=== PATIENT | male | born 1985 | race Caucasian/White ===

== ENCOUNTER 2024-06-25 21:50 | Inpatient (IN) | payer OTHER, SELFPAY ==
[2024-06-25] VITALS (15 sets, daily range): BP systolic 131–212; BP diastolic 88–128
--- NOTE | 2024-06-25 16:08 | ED.GENMED ---
History of Present Illness
General
Chief Complaint: Male Genito-Urinary Symptoms
Source: patient
Time Seen by Provider: 06/25/24 15:54
History of Present Illness
History of Present Illness:
39-year-old male with past medical history of previous UTI and urethral stricture presenting to the emergency department for evaluation of inability to urinate since 10 AM this morning, notes a lower abdominal pressure and fullness sensation but
states does not feel he is able to urinate properly. States this has not happened for few years. Previously followed with Dr. Young from urology but he has since retired. Patient denies any fevers, chills, rigors, back or flank pain, nausea,
vomiting or any other concerns presently.
Past History
Past History
ED Past Medical History: Other (History of meningitis) and Other (Previous urinary tract infection, urethral stricture, urinary retention)
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
Social History
Tobacco: Non-smoker
Alcohol: Occasional
Drug: None
Personal: Single
Living: with family
Employment: Employed
Family History
Family History: Other (Noncontributory)
Review of Systems
Review of Systems
All Other Systems: ROS reviewed and negative except as documented in HPI and ROS
Phy Exam
Physical Exam
Physical Exam:
GENERAL: Alert , in no apparent distress
EYE: clear conjunctiva b/l
HEAD: NCAT
ENT: mmm.
ABDOMEN: Soft, suprapubic fullness with mild ttp, no r/g, no cvat
NEUROLOGICAL: Alert and oriented
SKIN: Warm and dry, skin intact.
MUSCULOSKELETAL: No edema, well perfused.
PSYCH: Normal and appropriate interaction.
Scores
Heart Failure Risk
Heart Failure Risk Score: Not Applicable
Heart Score for Chest Pain Patients
STEMI patient?: Not applicable
Withdrawal Assessment of Alcohol
Withdrawal Assessment Completed?: Not applicable
Course
Orders/Labs/Results
Orders:
Orders
06/25/24 Dinner
Regular
At Your Request: Full Participation
Does patient need a safe tray?: No
06/25/24 16:02
Camargo Placement- Treatment ONCE
Reason for insertion: Acute Retention
06/25/24 16:19
Urinalysis Reflex To Culture Urgent
Date Specimen was Collected: 06/25/24
Time Specimen was Collected: 16:00
Urine Microscopic Reflex Cult Urgent
06/25/24 16:22
Lidocaine 2% [Lidocaine Uro-Jet 2%] 1 syringe .ROUTE .STK-MED ONE
06/25/24 17:16
Type+Screen Urgent
Basic Metabolic Panel Urgent
Complete Blood Count/With Diff Urgent
PTT Urgent
Prothrombin Time Urgent
06/25/24 17:31
Lidocaine 2% [Lidocaine Uro-Jet 2%] 1 syringe .ROUTE .STK-MED ONE
06/25/24 17:51
ABO2 Urgent
BBK Wristband Number:
Associate notified that ABO2 has been ordered: [id number]
Date: 06/25/24
Time: 17:41
Service Desk Agent ID: [id number]
06/25/24 18:25
Fentanyl Citrate/Pf [Sublimaze] 25 mcg IV PACU-Q5MPRN PRN
Fentanyl Citrate/Pf [Sublimaze] 50 mcg IV PACU-Q5MPRN PRN
Meperidine [Demerol] 12.5 mg IV PACU-Q5MPRN PRN
Ondansetron Injectable [Zofran] 4 mg IV PACU-ONCEPRN PRN
Prochlorperazine [Compazine] 5 mg IV PACU-ONCEPRN PRN
Notify MD As Directed
Notify physician if: for SDS patients with known or suspected sleep obstructive sleep apnea, monitor in the
PACU.
Notify MD for any apneic/desaturation episodes
O2 Therapy [RESP] Urgent
Titrate/Wean O2 to maintain O2 sat greater than (%): 92
Special Instructions: -Provide supplemental oxygen to achieve O2 sat of 92% or greater.
-After 15 min, may wean O2 and discontinue if patient is able to maintain O2 sat of 92%
or greater during recovery period.
If patient is a discharge home, without oxygen therapy, notify anestheiologist if
unable to maintain O2 SAT of 92% or greater on room air for MD clearance.
06/25/24 18:27
LevoFLOXacin 500 MG/100 ML [Levaquin] 500 mg in 100 ml IV ONCE
06/25/24 18:45
Fentanyl Citrate/Pf [Sublimaze] 100 mcg .ROUTE .STK-MED ONE
Lidocaine HCl/Pf [Xylocaine-Mpf 1% Vial] 50 mg .ROUTE .STK-MED ONE
Midazolam HCl [Versed] 2 mg .ROUTE .STK-MED ONE
Ondansetron Injectable [Zofran] 4 mg .ROUTE .STK-MED ONE
Propofol [Diprivan] 40 ml .ROUTE .STK-MED
06/25/24 19:58
Admit Patient As Directed
Co-Sign Provider:
Level of Care: Inpatient admission
Assign to:: Medical/Surgical
Physician / Group: Marcia
Diagnosis: urethral trauma, urinary retention
Patient Condition: Good
Reason for Hospitalization: s/p SPT insertion, urethral trauma
Expected length of stay greater than two midnights?: No
ELOS- Estimated Length of Stay in days: 1
I certify the patient meets the requirements for IP care: Yes
Reason for Overnight Stay: Bleeding/Bleeding Risk
PRN Pain Medication Management As Directed
May give lesser potent ordered pain med per pt: Yes
preference::
Protocol:: Medication orders for pain may be administered in a
manner that supports deferring to patient preference
when the pt is:
- Requesting an ordered lesser potent pain medication.
Least to most potent pain medications are defined
as: acetaminophen < NSAID < tramadol < opioids
(morphine, oxycodone, hydromorphone).
- Requesting a lesser dose of the same medication IF
ORDERED.
- Requesting a less intrusive route of administration
if both routes are prescribed by the provider (PO <
IV).
06/25/24 19:59
Activity As Directed
Activity Level: Out of Bed- Ad Piper
Catheter-Suprapubic As Directed
Site Care: as needed
Intake/ Output As Directed
Frequency: Per unit guidelines
06/25/24 20:00
Amoxicillin 500 mg/Clav 125 mg [Augmentin 500 mg/125 mg] 1 tablet PO BID
Pneumatic Compression Sleeves As Directed
Type: Knee high
DX Deep Vein Thrombosis Video Routine
06/25/24 20:01
Acetaminophen [Tylenol] 650 mg PO Q4HPRN PRN
Ibuprofen [Motrin] 800 mg PO Q6HPRN PRN
Oxycodone [Roxicodone] 5 mg PO Q6HPRN PRN
Vital Signs As Directed
Frequency: Post-operative guidelines
06/25/24 20:15
Normosol (Mult Electrolytes) [Normosol-R/Plasmalyte-A] 1,000 ml IV 75 mls/hr
06/26/24 07:07
Basic Metabolic Panel IN AM
Complete Blood Count/With Diff IN AM
Abnormal Lab Results
06/25/24 06/25/24
16:19 17:16
WBC 12.0 H 10^3/uL
(4.8-10.8)
MPV 12.2 H fL
(7.4-10.4)
Abs Immat Gran (auto) 0.1 H 10^3/uL
(0-0.05)
Absolute Neuts (auto) 8.5 H 10^3/uL
(1.4-6.5)
Absolute Monos (auto) 0.9 H 10^3/uL
(0.1-0.6)
Immature Gran % 0.6 H %
(0-0.5)
Lymphocytes % 19.6 L %
(20.5-51.1)
Potassium 3.3 L mmol/L
(3.5-5.1)
Carbon Dioxide 19 L mmol/L
(22-30)
Glucose 115 H mg/dl
(70-99)
Ur Occult Blood Reflex 4+ A
(Negative)
Urine RBC 80-90 A /HPF
(0-2)
Urine Bacteria (Reflex) Few A
(Negative)
Antibody Screen Positive A
(Negative)
06/25/24 17:16
06/25/24 17:16
Vital Signs
Initial and Last Documented VS:
Initial Vital Signs
Temp Pulse Resp BP Pulse Ox
98.3 F 78 20 160/99 99
06/25/24 14:32 06/25/24 14:32 06/25/24 14:32 06/25/24 14:32 06/25/24 14:32
Last Documented Vital Signs
Temp Pulse Resp BP Pulse Ox
98.3 F 76 18 154/83 98
06/26/24 07:58 06/26/24 07:58 06/26/24 07:58 06/26/24 07:58 06/26/24 08:00
MDM/Problems Addressed
Differential Diagnosis Includes:
UTI, BPH, stricture
MDM/Problems Addressed:
39-year-old male presenting to the emergency department for evaluation with inability to urinate since 10 AM. History of similar with UTIs and strictures in the past. Patient in no acute distress. Afebrile. Bedside bladder scan performed by
myself which showed greater than 750 mL of urine. Patient to attempt to urinate but if unable to do so will attempt Camargo catheter placement. Disposition pending
Chronic conditions affecting care: Other (urethral stricture)
*Pulse Oximetry
Patient hypoxic: no
*Critical Care Note
Total Time (30-74mins, 75-104mins- exclusive of procedures): Not Applicable
Data Reviewed
Review of Other/Old Records Reveals: Labs and Records
Patient Management
Discussion with other providers: Final Installer Inspector
Escalation/DeEscalation of care consider admission/obs:
Nursing able to place camargo however there seemed to be resistance but there was small urine return. Upon attempting to blow up camargo balloon there was large amount of blood within camargo bag and patient noted improvement of pressure. Tanner blood
draining. Will initiate CBI. Urology updated
Urology coming to ED to see patient
Unable to place camargo catheter wit urology. Urology planning to take to OR for further evaluation
ED Attending Note
-
Portions of this chart may have been created with voice recognition software.� Occasional wrong word or��sound alike� substitutions may have occurred due to the inherent limitations of voice recognition software.
Discharge Plan
Departure
Patient Disposition: OR
Date of Disposition: 06/25/24
Time of Disposition: 17:26
Presentation/result/management discussed w/ accepting MD/DO: Marcia
Discharge Problem:
Acute urinary retention, Hematuria
Interventions
Interventions:
*Risk Screen - Suicide Last Done: 06/25/24 16:04
*General Assessment Last Done: 06/25/24 14:32
*Neglect/Abuse Screening Last Done: 06/25/24 16:04
ED- Fall Risk Assessment Last Done: 06/25/24 16:05
*ED COVID-19 Vaccine History Last Done: 06/25/24 16:04
*Nursing Disposition Last Done: 06/25/24 18:11
ED-Male Genitourinary Assessment Last Done: 06/25/24 16:05
Discharge Date and Time
Discharge Date/Time: 06/25/24 18:12
[2024-06-25 16:58] LABS: Urine Albumin Trace (Neg - Trace); Urine Bilirubin Negative (Negative); Urine Character Clear (Clear); Urine Color Yellow; Urine Glucose Negative (Negative); Urine Ketone Negative (Negative); Urine Leukocyte Negative (Negative); Urine Nitrite Negative (Negative); Urine Occult Blood 4+ (Negative); Urine Urobilinogen Negative (Neg - 1+)
[2024-06-25 17:09] LABS: Urine Red Blood Cell 80-90 /HPF (0-2); Urine Squamous Cell 26-30 /LPF (Few)
[2024-06-25 17:10] LABS: Urine Bacteria Few (Negative); Urine White Cell 0-2 /HPF (0-5)
[2024-06-25 17:31] LABS: % Basophils 0.3 % (0-2); % Eosinophils 1.4 % (0-6); % Immature Granulocytes 0.6 % (0-0.5); % Lymphocytes 19.6 % (20.5-51.1); % Monocytes 7.3 % (1.7-9.3); % Neutrophils 70.8 % (42.2-75.2); Absolute Eosinophils 0.2 10^3/uL (0-0.7); Absolute Immature Granulocytes 0.1 10^3/uL (0-0.05); Absolute Lymphocytes 2.4 10^3/uL (1.2-3.4); Absolute Monocytes 0.9 10^3/uL (0.1-0.6); Absolute Neutrophils 8.5 10^3/uL (1.4-6.5); Hematocrit 41.4 % (39.0-52.0); Mean Corp Hgb Conc. 33.8 g/dL (33.0-37.0); Mean Corpuscular Hgb 27.3 pg (27.0-31.0); Mean Corpuscular Volume 80.9 fL (80.0-94.0); Mean Platelet Volume 12.2 fL (7.4-10.4); Nucleated Red Blood Cells % 0 % (-); Platelet Count 205 10^3/uL (130-400); Red Blood Cell Count 5.12 10^6/uL (4.70-6.10); Red Cell Dist. Width 14.1 % (11.5-14.5)
[2024-06-25 17:36] LABS: INR 1.06; PT 13.8 Sec (11.4-14.6)
[2024-06-25 17:37] LABS: APTT 29.1 Sec (23.4-35.0)
[2024-06-25 17:41] LABS: Blood Urea Nitrogen 11 mg/dl (9-20); Calcium 9.5 mg/dl (8.4-10.2); Carbon Dioxide 19 mmol/L (22-30); Chloride 105 mmol/L (98-107); Glucose 115 mg/dl (70-99); Potassium 3.3 mmol/L (3.5-5.1); Sodium 143 mmol/L (135-145); eGFR > 60.00
--- NOTE | 2024-06-25 18:25 | W.SUR.PREOP ---
Pre-Operative Surgical Note
-
I have examined this patient prior to the performance of the scheduled procedure.
The patient's condition is unchanged from the time of the current History and
Physical and the patient is able to undergo the scheduled procedure.
Multiple catheter placement attempts unsuccessful in ED - regular, Coude, 3-way (by ED staff).
Due to urethral trauma, suspected false passage, and h/o urethral stricture, advised cystoscopy for placement.
To OR for cystoscopy, dilation, complicated catheter placement.
Surgical consent signed on chart
IV [employer] employee communications coordinator to OR.
D/w patient.
D/w ED.
D/w Anesthesiology.
--- NOTE | 2024-06-25 20:02 | W.IMMPOSTOP ---
Surgical Immed Post Op Note
-
Primary Surgeon: Marcia
Pre-op Diagnosis:
1. H/o urethral stricture
2. Acute urinary retention
3. Urethral trauma w/ complete obliteration of urethral lumen
Post-op Diagnosis: Same
Procedure Performed:
1. Cystoscopy
2. Suprapubic aspiration of bladder
2. Suprapubic catheter insertion (16Fr)
Anesthesia Type: LMA
Specimen / Cultures: None/None
Estimated Blood Loss: 5 cc
Drains: 16Fr suprapubic catheter (10 cc in balloon)
Complications: None
Operative Findings:
1. Complete obliteration of proximal membranous vs. bulbar urethra - complete 'cob-webbing' of urethral lumen w/ multiple false passages and organized clot.
2. No visible urethral lumen noted on cystoscopy - failed attempts at Guidewire passage.
3. Aspiration of clear yellow urine via spinal needle @suprapubic area - 16Fr SPT inserted using SPT kit and trocar.
4. >1300 cc of UOP noted in catheter post-op.
D/w patient in PACU.
[2024-06-25] MEDS: NORMOSOL-R/PLASMALYTE-A 1000 IV (21:51)
[2024-06-25] MEDS: AUGMENTIN 500 MG/125 MG 1 TABLET PO (21:52)
[2024-06-25] MEDS: MOTRIN 800 MG PO (21:54)
--- NOTE | 2024-06-25 22:16 | PTCARENOTE ---
Received pt from PACU via stretcher. Pt ambulated to bed with 2 assist, slightly wobbly on feet. AAOx3. Oriented to floor, call aden within reach
[2024-06-26 00:05] VITALS: BP 145/100
[2024-06-26 03:15] VITALS: BP 148/79
[2024-06-26] MEDS: MOTRIN 800 MG PO (06:26)
[2024-06-26] MEDS: ZOFRAN 4 MG IV (06:38)
[2024-06-26 07:35] LABS: % Basophils 0.1 % (0-2); % Eosinophils 0.1 % (0-6); % Immature Granulocytes 0.6 % (0-0.5); % Lymphocytes 4.8 % (20.5-51.1); % Monocytes 4.6 % (1.7-9.3); % Neutrophils 89.8 % (42.2-75.2); Absolute Immature Granulocytes 0.1 10^3/uL (0-0.05); Absolute Lymphocytes 0.8 10^3/uL (1.2-3.4); Absolute Monocytes 0.8 10^3/uL (0.1-0.6); Absolute Neutrophils 15.5 10^3/uL (1.4-6.5); Hematocrit 42.1 % (39.0-52.0); Hemoglobin 13.8 g/dL (13.0-18.0); Mean Corp Hgb Conc. 32.8 g/dL (33.0-37.0); Mean Corpuscular Hgb 27.1 pg (27.0-31.0); Mean Corpuscular Volume 82.7 fL (80.0-94.0); Mean Platelet Volume 12.3 fL (7.4-10.4); Nucleated Red Blood Cells % 0 % (-); Platelet Count 202 10^3/uL (130-400); Red Blood Cell Count 5.09 10^6/uL (4.70-6.10); Red Cell Dist. Width 14.6 % (11.5-14.5); White Blood Cell Count 17.2 10^3/uL (4.8-10.8)
--- NOTE | 2024-06-26 07:50 | W.PN.URO.CBU ---
Today's Communication / Plan
-
D/c home today
SPT teaching and wound care
SPT leg bag and large bag teaching
F/U w/ Dr. Kennedy in 1 week for wound check
Assessment / Plan
-
Acute urinary retention
H/o urethral stricture
Urethral trauma w/ multiple false passages
06/25: s/p cystoscopy, clot extraction, SPT insertion
Diagnosis
-
Date of Service: June 26, 2024
-
Patient Diagnosis:
Acute urinary retention
H/o urethral stricture
Urethral trauma w/ multiple false passages
Post Op Day:
06/25: s/p cystoscopy, clot extraction, SPT insertion
Subjective
-
Tolerating diet.
Notes minimal pain @suprapubic site.
Urine light punch w/o clots.
Objective
-
Vital Signs
Temp Pulse Resp BP Pulse Ox
98.3 F 76 18 154/83 98
06/26/24 07:58 06/26/24 07:58 06/26/24 07:58 06/26/24 07:58 06/26/24 07:58
Intake and Output
06/25/24 06/26/24 06/27/24
06:59 06:59 06:59
Intake Total 1210 / 1210
Output Total 3225 / 3225
Balance -2014 /
Intake:
Oral fluids 960 / 960
IV fluids (Total) 250 / 250
Normosol 250 / 250
Output:
Urine, Jordan 850 / 850
Urine, Voided 2375 / 2375
Laboratory Results
06/26/24 07:07
06/26/24 07:07
Physical Exam
-
General - well developed, well nourished, no acute distress
Abdomen - soft, non-tender, non-distended, SPT site clean w/o drainage/bleeding
Genitalia - normal, scant old clots per urethra, no active bleeding
Skin - warm & dry with no rash
Extremities - no clubbing, no cyanosis, no edema
Care Review
Data Reviewed
Discussed with: Nursing
[2024-06-26] MEDS: AUGMENTIN 500 MG/125 MG 1 TABLET PO (07:53)
[2024-06-26 07:58] VITALS: BP 154/83
[2024-06-26 08:09] LABS: Blood Urea Nitrogen 11 mg/dl (9-20); Calcium 8.6 mg/dl (8.4-10.2); Carbon Dioxide 26 mmol/L (22-30); Chloride 106 mmol/L (98-107); Estimated Creatinine Clearance > 125 ml/min; Glucose 116 mg/dl (70-99); Potassium 3.9 mmol/L (3.5-5.1); Sodium 143 mmol/L (135-145); eGFR > 60.00
--- NOTE | 2024-06-26 09:25 | W.DS.TRANS ---
DC Summary - Color Weigher
-
Discharge Instructions:
Discharge Diagnosis/Procedures urethral trauma, false passages, s/p SPT
insertion
Diet Regular
Activity No strenuous activity
Additional Activity No strenuous exercise, lifting for [address] Kennedy
Driving Restrictions No driving for 24 hours
Bathing Restrictions OK to Shower
Blood Work not applicable
Wound Care Change dressing around SPT site as needed,
maintain SPT to drainage bag (leg bag or large
bag)
Instructions:
Stand-Alone Forms:
Changes to Home Medications: No
Discharge Medications:
DC Medications w/original date entered in [employer]
amoxicillin 500 mg-potassium clavulanate 125 mg tablet 1 tab PO BID 06/25/24
acetaminophen 300 mg-codeine 30 mg tablet 1 tab PO Q8H PRN pain 7 days #20 tabs 06/26/24
Home Medication Changes
Pending Results: No
Total time spent discharging patient (in min): 45
[2024-06-26] MEDS: NORMOSOL-R/PLASMALYTE-A IV (10:41)
--- NOTE | 2024-06-26 11:36 | PTCARENOTE ---
3cc of NSS added to camargo balloon per Dr Veloz request. Pt tolerated well no complaints
--- NOTE | 2024-06-26 14:21 | CM ---
DEWAYNE met with Jose at bedside to complete IA. He lives alone in an apartment with no entry steps.
Discharged to home s/p suprapubic tube; VN offered and declined.
Plan: Discharge to home with follow up with Urology; no needs per patient.
== END 2024-06-26 16:36 | disposition home or self-care (01) | DRG 696 ==
LOC: 4 EAST ACU 21:50
PROVIDERS: Physician Assistant Medical; ADMITTING PHYSICIAN Surgery; EMERGENCY PHYSICIAN Emergency Medicine; FAMILY PHYSICIAN Family Medicine
PROC: 0T9B40Z Drainage of Bladder with Drainage Device, Percutaneous Endoscopic Approach (ICD-10-PCS; 2024-06-25)
DX: R33.9 Retention of urine, unspecified (principal); N35.919 Unspecified urethral stricture, male, unspecified site; N32.89 Other specified disorders of bladder; Z87.440 Personal history of urinary (tract) infections
CPT/HCPCS: 51702; 51798; 80048; 81003; 81015; 85025; 85610; 85730; 86850; 86870; 86900; 86901; 86905; 99285; C1769

== ENCOUNTER 2024-06-27 01:11 | Emergency (ER) | payer OTHER, SELFPAY ==
[2024-06-27 01:16] VITALS: BP 125/89
--- NOTE | 2024-06-27 01:32 | EDRN ---
blood and urine coming out of penis when he was straining for a bowel movement.
--- NOTE | 2024-06-27 02:14 | ED.GENMED ---
History of Present Illness
General
Chief Complaint: Male Genito-Urinary Symptoms
Source: patient and records
Exam Limitations: none
Time Seen by Provider: 06/27/24 01:23
Nursing documentation reviewed up to this point in time: agreed with
History of Present Illness
History of Present Illness:
39-year-old male with history as documented presents to the emergency room for evaluation of a blocked suprapubic catheter. He was here 2 days ago for urinary retention and urethral stricture and ultimately seen by urology in the ER and taken to
the OR and required placement of a suprapubic catheter. Patient has been on prophylactic antibiotics since. Tonight he says that he noticed his suprapubic catheter was not draining. He says he went to have a bowel movement and when he was bearing
down he passed some dark urine through his penis and his bag has remained empty. Came to the emergency room for assessment. He denies any abdominal pain or any other issues.
Past History
Past History
ED Past Medical History: Other (History of meningitis) and Other (Previous urinary tract infection, urethral stricture, urinary retention)
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
Social History
Tobacco: Non-smoker
Alcohol: Occasional
Drug: None
Personal: Single
Living: with family
Employment: Employed
Family History
Family History: Other (Noncontributory)
Review of Systems
Review of Systems
All Other Systems: ROS reviewed and negative except as documented in HPI and ROS
Constitutional: Denies fever
ABD/GI: Denies abdominal pain
: Reports other (Blocked suprapubic catheter); Denies flank pain
Phy Exam
Physical Exam
Physical Exam:
General: Well appearing and non-toxic
HEENT: protecting airway
Neck: appears supple
CV: No evidence of cyanosis
Resp: No accessory muscle use
Abd: Non-distended, nontender, suprapubic catheter in place bag is empty
Extremities: No deformities
Neuro: Alert
Psych: Normal affect
Skin: Intact
Scores
Heart Failure Risk
Heart Failure Risk Score: Not Applicable
Heart Score for Chest Pain Patients
STEMI patient?: Not applicable
Withdrawal Assessment of Alcohol
Withdrawal Assessment Completed?: Not applicable
Course
Vital Signs
Initial and Last Documented VS:
Initial Vital Signs
Temp Pulse Resp BP Pulse Ox
36.7 C 77 16 125/89 95
06/27/24 01:16 06/27/24 01:16 06/27/24 01:16 06/27/24 01:16 06/27/24 01:16
Last Documented Vital Signs
Temp Pulse Resp BP Pulse Ox
36.7 C 77 16 125/89 95
06/27/24 01:16 06/27/24 01:16 06/27/24 01:16 06/27/24 01:16 06/27/24 01:16
MDM/Problems Addressed
Differential Diagnosis Includes:
Blocked catheter
MDM/Problems Addressed:
39-year-old male presents with a blocked suprapubic catheter; placed 2 days ago due to urine retention in the setting of urethral stricture. I personally irrigated catheter with piston syringe�it was blocked with what appeared to be dried blood
clot; after clearing clot subsequent urine light yellow color and bag draining freely. Already on prophylactic antibiotic. Discharge with outpatient urology follow-up as scheduled.
*Pulse Oximetry
Patient hypoxic: no
*Critical Care Note
Total Time (30-74mins, 75-104mins- exclusive of procedures): Not Applicable
Data Reviewed
Review of Other/Old Records Reveals: Operative Reports
Source: patient and records
ED Attending Note
-
Portions of this chart may have been created with voice recognition software.� Occasional wrong word or��sound alike� substitutions may have occurred due to the inherent limitations of voice recognition software.
Discharge Plan
Departure
Patient Disposition: Home (Routine Discharge)
Date of Disposition: 06/27/24
Time of Disposition: 02:12
Patient with high blood pressure during this ER visit?: No
Discharge Problem:
Blocked suprapubic catheter
Instructions: How to Care for Your Jordan Catheter, Male
Prescriptions:
No Action
amoxicillin-pot clavulanate 500-125 mg tablet
1 tab PO BID
acetaminophen-codeine 300-30 mg tablet
1 tab PO Q8H PRN (Reason: pain) 7 Days Qty: 20 0RF
Referrals:
Henrique Kennedy MD [Active] - Keep scheduled appt
Activity Restrictions/Additional Instructions:
Thank you for visiting the Emergency Department at [facility].
1. Please schedule a follow up appointment as directed. Call first thing tomorrow morning to make an appointment.
2. If indicated, please take your medications as instructed and indicated on discharge paperwork.
3. If any of your symptoms do not improve, or persist, or become more severe within 6-12 hours, please return to the emergency department for further care.
4. Please return to the emergency department if you develop a headache, neck pain/stiffness, fever greater than 100.4F, chest pain, shortness of breath, persistent nausea, vomiting, slurred speech, difficulty walking, numbness/tingling, weakness,
signs of infection or any other symptoms that are worrisome to you.
Please call [phone] if you have any questions.
Interventions
Interventions:
*Risk Screen - Suicide Last Done: 06/27/24 01:16
*General Assessment Last Done: 06/27/24 01:28
*Neglect/Abuse Screening Last Done: 06/27/24 01:16
ED- Fall Risk Assessment Last Done: 06/27/24 01:28
*ED COVID-19 Vaccine History Last Done: 06/27/24 01:16
ED-Male Genitourinary Assessment Last Done: 06/27/24 01:28
Discharge Date and Time
Print Language: FRISIAN
[2024-06-27 02:40] VITALS: BP 138/76
== END 2024-06-27 02:40 | disposition home or self-care (01) ==
LOC: EMR 01:11
PROVIDERS: EMERGENCY PHYSICIAN Emergency Medicine
DX: T83.090A Other mechanical complication of cystostomy catheter, initial encounter (principal); Y83.8 Other surgical procedures as the cause of abnormal reaction of the patient, or of later complication, without mention of misadventure at the time of the procedure
CPT/HCPCS: 99283

== ENCOUNTER 2024-07-02 14:19 | Emergency (ER) | payer OTHER, SELFPAY ==
--- NOTE | 2024-07-02 14:35 | ED.GENMED ---
History of Present Illness
General
Chief Complaint: Catheter/Tube Problem
Source: patient
Time Seen by Provider: 07/02/24 14:26
History of Present Illness
History of Present Illness:
39-year-old male with history of urethral stricture and false passage presents 1 week after having suprapubic catheter placed in the operating room by urology stating that his catheter is clogged. He was here for the same reason recently as well.
This was able to be unclogged with the patient and. He states yesterday he tried it irrigated by hand himself and saw couple small blood clots. His a leg bag was full this morning when he woke up however throughout the day there is been no urine
in the bag and he feels full in his bladder. He is currently not on any antibiotics. No fevers. No other complaints
Past History
Past History
ED Past Medical History: Other (History of meningitis) and Other (Previous urinary tract infection, urethral stricture, urinary retention)
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
Social History
Tobacco: Non-smoker
Alcohol: Occasional
Drug: None
Personal: Single
Living: with family
Employment: Employed
Family History
Family History: Other (Noncontributory)
Phy Exam
Physical Exam
Physical Exam:
General: Well-appearing male no acute respiratory distress
HEENT: Normocephalic atraumatic
Heart: Regular rate and rhythm no murmurs
Lungs: Clear no wheeze
Abdomen soft nontender slightly tender to the suprapubic region. Patient is obese but no obvious distention. No urine in the leg bag from the suprapubic cath. There is blood noted at the urethral meatus that is dry
Course
Vital Signs
Initial and Last Documented VS:
Initial Vital Signs
Temp Pulse Resp Pulse Ox
98.3 F 116 18 98
07/02/24 14:20 07/02/24 14:20 07/02/24 14:20 07/02/24 14:20
Last Documented Vital Signs
Temp Pulse Resp Pulse Ox
98.3 F 116 18 98
07/02/24 14:20 07/02/24 14:20 07/02/24 14:20 07/02/24 14:20
MDM/Problems Addressed
Differential Diagnosis Includes:
Suprapubic catheter not functioning likely clogged. Will attempt to hand irrigate
*Critical Care Note
Total Time (30-74mins, 75-104mins- exclusive of procedures): Not Applicable
Update Note
Update Note:
The catheter was successfully irrigated with a syringe. The catheter is now flowing well. Involved urology. They recommended he stay hydrated and follow-up with his surgeon in the office. Stable for this
ED Attending Note
-
Portions of this chart may have been created with voice recognition software.� Occasional wrong word or��sound alike� substitutions may have occurred due to the inherent limitations of voice recognition software.
Discharge Plan
Departure
Patient Disposition: Home (Routine Discharge)
Date of Disposition: 07/02/24
Time of Disposition: 16:07
Patient with high blood pressure during this ER visit?: No
Discharge Problem:
clogged catheter
Instructions: How to Care for Your Jordan Catheter, Male
Prescriptions:
No Action
amoxicillin-pot clavulanate 500-125 mg tablet
1 tab PO BID
acetaminophen-codeine 300-30 mg tablet
1 tab PO Q8H PRN (Reason: pain) 7 Days Qty: 20 0RF
Referrals:
Kenny Lim MD [Family Provider] -
Activity Restrictions/Additional Instructions:
Stay hydrated. Please follow-up with your surgeon. Return if needed otherwise
Interventions
Interventions:
*Risk Screen - Suicide Last Done: 07/02/24 14:20
*General Assessment Last Done: 07/02/24 14:20
*Neglect/Abuse Screening Last Done: 07/02/24 14:20
HY-Fdcvlm-Itjdfczodg Assessment Last Done: 07/02/24 15:13
ED-Male Genitourinary Assessment Last Done: 07/02/24 15:13
Discharge Date and Time
Print Language: FILIPINO
[2024-07-02 16:45] VITALS: BP 147/84
== END 2024-07-02 16:20 | disposition home or self-care (01) ==
LOC: EMR 14:19
PROVIDERS: EMERGENCY PHYSICIAN Emergency Medicine; FAMILY PHYSICIAN Family Medicine
DX: Z46.6 Encounter for fitting and adjustment of urinary device (principal); Z87.440 Personal history of urinary (tract) infections
CPT/HCPCS: 99282

== ENCOUNTER 2024-07-03 17:18 | Emergency (ER) | payer OTHER, SELFPAY ==
[2024-07-03 17:21] VITALS: BP 146/100
[2024-07-03 18:24] VITALS: BMI 44.6
[2024-07-03 18:42] LABS: Urine Albumin 2+ (Neg - Trace); Urine Bilirubin 1+ (Negative); Urine Character Slightly Cloudy (Clear); Urine Color Amber; Urine Glucose Negative (Negative); Urine Ketone Negative (Negative); Urine Leukocyte 1+ (Negative); Urine Nitrite Positive (Negative); Urine Occult Blood 4+ (Negative); Urine Specific Gravity 1.025 (<1.030); Urine Urobilinogen 1+ (Neg - 1+)
[2024-07-03 18:50] LABS: Urine Calcium Oxalate Crystals Present; Urine Squamous Cell 0-2 /LPF (Few)
[2024-07-03 18:51] LABS: Urine Red Blood Cell 90-100 /HPF (0-2)
[2024-07-03 18:54] LABS: Urine Bacteria Many (Negative); Urine Yeast Many (Negative)
--- NOTE | 2024-07-03 19:15 | ED.GENMED ---
History of Present Illness
General
Chief Complaint: Catheter/Tube Problem
Source: patient
Exam Limitations: none
Time Seen by Provider: 07/03/24 18:23
Nursing documentation reviewed up to this point in time: agreed with
History of Present Illness
History of Present Illness:
Patient is a 39-year-old male who presents to the ER for evaluation. Patient reports he has a known urethral stricture and had a suprapubic tube inserted by Dr. Kennedy 06/27.
Patient reports urine was not draining and he noticed some blood clots in tubing. He called office and as directed he tried to flush at home without success .
seizures. Patient denies any nausea vomiting fever chills.
Prior to my exam, nurse did irrigate and a Jordan catheter is draining. Patient has no complaints at this time.
Past History
Past History
ED Past Medical History: Other (History of meningitis) and Other (Previous urinary tract infection, urethral stricture, urinary retention)
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
Social History
Tobacco: Non-smoker
Alcohol: Occasional
Drug: None
Personal: Single
Living: with family
Employment: Employed
Family History
Family History: Other (Noncontributory)
Review of Systems
Review of Systems
Allergies reviewed?: Yes
All Other Systems: ROS reviewed and negative except as documented in HPI and ROS
Constitutional: Reports no symptoms; Denies fever, fatigue or chills
ABD/GI: Denies abdominal pain, nausea or vomiting
: Reports other (Jordan catheter not draining today)
Musculoskeletal: Reports no symptoms
Skin: Reports no symptoms
Neurological: Reports no symptoms
Psychiatric: Reports no symptoms
Phy Exam
General Physical Exam
General Presentation: no apparent distress
General age: appears stated age
General Skin: warm and dry
General Habitus: obese
General Mental: alert
Gastrointestinal Exam
Gastrointestinal Exam: non tender, soft and other (Suprapubic tube in place no drainage from insertion site no surrounding redness from insertion site)
Genitourinary Exam Male
Exam Male: other (Suprapubic tube bag draining dark urine)
Neurological Exam
Neurological Exam: alert and oriented x3
Musculoskeletal Exam
Musculoskeletal Exam: full ROM
Skin Exam
Skin Exam: normal color and warm/dry
Psychiatric Exam
Psychiatric Exam: normal mood/affect
Course
Orders/Labs/Results
Orders:
Orders
07/03/24 18:33
Urinalysis Reflex To Culture Urgent
Date Specimen was Collected: 07/03/24
Time Specimen was Collected: 18:32
Urine Microscopic Reflex Cult Urgent
Urine Culture Urgent
GABBY Source: U
Specimen Description:
Date Specimen was Collected: 07/03/24
Time Specimen was Collected: 18:32
Abnormal Lab Results
07/03/24
18:33
Ur Occult Blood Reflex 4+ A
(Negative)
Urine Nitrite (Reflex) Positive A
(Negative)
Urine Bilirubin 1+ A
(Negative)
Leukocyte Esterase Rfl 1+ A
(Negative)
Urine RBC 90-100 A /HPF
(0-2)
Urine Bacteria (Reflex) Many A
(Negative)
Urine Yeast Many A
(Negative)
Urine Albumin (Reflex) 2+ A
(Neg - Trace)
Vital Signs
Initial and Last Documented VS:
Initial Vital Signs
Temp Pulse Resp BP Pulse Ox
98.9 F 85 18 146/100 100
07/03/24 17:21 07/03/24 17:21 07/03/24 17:21 07/03/24 17:21 07/03/24 17:21
Last Documented Vital Signs
Temp Pulse Resp BP Pulse Ox
98.9 F 85 18 146/100 100
07/03/24 17:21 07/03/24 17:21 07/03/24 17:21 07/03/24 17:21 07/03/24 17:21
Senior Network Architect consulted with Physician
Senior Network Architect consulted with physician?: Yes
Name of Physician Consulted: Valdemar
MDM/Problems Addressed
MDM/Problems Addressed:
Patient has a suprapubic tube inserted June 27 by urologyThat was not draining with clots in tubing.he tried to irrigate and was not successful. Patient was not in urinary retention. Nurse here at bedside did irrigate suprapubic tube which then
allowed successful drainage of urine. Urinalysis shows 90�100 RBCs but only 3�5 white blood cells. There is nitrates however no complaints of fever chills no abdominal pain I will hold off on antibiotics. Discussed close outpatient follow with
urology.
Patient was also seen here yesterday for same. I did review this with urology Dr. Richter on-call as he recommends will review with patient how to flush his tubing given additional supplies to go home and will have him call Dr. Kennedy tomorrow to
discuss this with him.
The contrast
Chronic conditions affecting care:
ureteral stricture
*Pulse Oximetry
Patient hypoxic: no
*Critical Care Note
Total Time (30-74mins, 75-104mins- exclusive of procedures): Not Applicable
ED Attending Note
-
Portions of this chart may have been created with voice recognition software.� Occasional wrong word or��sound alike� substitutions may have occurred due to the inherent limitations of voice recognition software.
Discharge Plan
Departure
Patient Disposition: Home (Routine Discharge)
Date of Disposition: 07/03/24
Time of Disposition: 19:51
Patient with high blood pressure during this ER visit?: Yes
Condition: Fair
Covid-19: Not Applicable
Discharge Problem:
suprapubic tube problem
Instructions: BLOOD PRESSURE
Prescriptions:
No Action
amoxicillin-pot clavulanate 500-125 mg tablet
1 tab PO BID
acetaminophen-codeine 300-30 mg tablet
1 tab PO Q8H PRN (Reason: pain) 7 Days Qty: 20 0RF
Referrals:
Henrique Kennedy MD [Active] -
UNKNOWN - PT DOES,NOT KNOW [Family Provider] -
Activity Restrictions/Additional Instructions:
As discussed you may irrigate your suprapubic tube as needed with supplies provided. As discussed please call Dr. Kennedy tomorrow morning to further review symptoms. Return if any worsening of symptoms.
Interventions
Interventions:
*Risk Screen - Suicide Last Done: 07/03/24 17:21
*General Assessment Last Done: 07/03/24 18:24
*Neglect/Abuse Screening Last Done: 07/03/24 17:21
ED- Fall Risk Assessment Last Done: 07/03/24 18:24
*ED COVID-19 Vaccine History Last Done: 07/03/24 18:24
WK-Nyuw[facility]-Glzbcwpymf Assessment Last Done: 07/03/24 18:24
ED-Male Genitourinary Assessment Last Done: 07/03/24 18:24
Discharge Date and Time
Print Language: CYPRIOT
[2024-07-03 19:55] VITALS: BP 133/84
== END 2024-07-03 20:07 | disposition home or self-care (01) ==
LOC: EMR 17:18
PROVIDERS: Nurse Practitioner; EMERGENCY PHYSICIAN Emergency Medicine
DX: N35.919 Unspecified urethral stricture, male, unspecified site (principal); R56.9 Unspecified convulsions; Z87.440 Personal history of urinary (tract) infections
CPT/HCPCS: 99282; 81003; 81015; 87086

== ENCOUNTER 2024-07-06 12:33 | Emergency (ER) | payer OTHER, BC, SELFPAY ==
[2024-07-06 12:34] VITALS: BP 159/101
--- NOTE | 2024-07-06 12:39 | ED.GENMED ---
History of Present Illness
General
Chief Complaint: Male Genito-Urinary Symptoms
Source: patient
Exam Limitations: none
Time Seen by Provider: 07/06/24 12:39
Nursing documentation reviewed up to this point in time: agreed with
History of Present Illness
History of Present Illness:
39-year-old male with history of suprapubic catheter due to urethral strictures. Catheter was put in [address] Kennedy. Pt taught how to irrigate it as he has had some clots. Has successfully irrigated it several times but today he got
several clots and then could not irrigate it and feels it may be clogged. Denies fever or abdominal pain.
Past History
Past History
ED Past Medical History: Other (History of meningitis) and Other (Previous urinary tract infection, urethral stricture, urinary retention)
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
Social History
Tobacco: Non-smoker
Alcohol: Occasional
Drug: None
Personal: Single
Living: alone
Employment: Employed
Family History
Family History: Other (Noncontributory)
Review of Systems
Review of Systems
Allergies reviewed?: Yes
All Other Systems: ROS reviewed and negative except as documented in HPI and ROS
Constitutional: Denies fever or chills
ABD/GI: Denies abdominal pain or nausea
: Reports other (feels like bladder is not emptying since this am. having trouble irrigating suprapubic catheter)
Skin: Reports no symptoms
Phy Exam
Physical Exam
Physical Exam:
GENERAL: No acute distress. A&Ox3.
CONSTITUTIONAL: Afebrile.
RESPIRATORY: Regular respirations, nonlabored, lungs clear.
CARDIOVASCULAR: Regular rate and rhythm, no murmurs, no rubs.
GI: Soft, nontender, normal BS
: Suprapubic tube intact. Small amount (20 ml) clear michael urine in bag
MUSCULOSKELETAL: Moves with ease. Well perfused.
SKIN: Warm, dry, pink
PSYCH: Normal mood and affect. Well kept, interactive and appropriate
NEUROLOGIC: Awake, alert and oriented. No focal neurological deficits
Course
Vital Signs
Initial and Last Documented VS:
Initial Vital Signs
Temp Pulse Resp BP Pulse Ox
98.2 F 95 16 159/101 98
07/06/24 12:34 07/06/24 12:34 07/06/24 12:34 07/06/24 12:34 07/06/24 12:34
Last Documented Vital Signs
Temp Pulse Resp BP Pulse Ox
98.2 F 95 16 159/101 98
07/06/24 12:34 07/06/24 12:34 07/06/24 12:34 07/06/24 12:34 07/06/24 12:34
MDM/Problems Addressed
Differential Diagnosis Includes:
clogged catheter
MDM/Problems Addressed:
39-year-old male with history of suprapubic catheter due to urethral strictures. Catheter was put in [address] Kennedy. Pt taught how to irrigate it as he has had some clots. Has successfully irrigated it several times but today he got
several clots and then could not irrigate it and feels it may be clogged. Denies fever or abdominal pain.
Leg bad with small amount clear michael urine.
Afebrile NAD
Suprapubic catheter irrigated easily with sterile saline, aspirated two relatively small clots.
2:00 p.m.
Bladder scan 12 ml, no retention.
Leg bag draining well.
Pt has appt. with [facility] in 2 days for eval for urethroplasty
Stable for discharge
BP recheck 158/92
*Critical Care Note
Total Time (30-74mins, 75-104mins- exclusive of procedures): Not Applicable
ED Attending Note
-
Portions of this chart may have been created with voice recognition software.� Occasional wrong word or��sound alike� substitutions may have occurred due to the inherent limitations of voice recognition software.
Discharge Plan
Departure
Patient Disposition: Home (Routine Discharge)
Date of Disposition: 07/06/24
Time of Disposition: 14:05
Patient with high blood pressure during this ER visit?: Yes
Condition: Good
Discharge Problem:
Hematuria
Instructions: How to Care for Your Suprapubic Urinary Catheter, Blood in the Urine (Hematuria), Adult (DC)
Prescriptions:
No Action
amoxicillin-pot clavulanate 500-125 mg tablet
1 tab PO BID
acetaminophen-codeine 300-30 mg tablet
1 tab PO Q8H PRN (Reason: pain) 7 Days Qty: 20 0RF
Referrals:
Urologist, at [facility] [Other] - Keep scheduled appt
Kenny Lim MD [Family Provider] -
Activity Restrictions/Additional Instructions:
As we discussed, your catheter seems to be draining well at this time. You had no urine retention on the bladder scan
Keep your appointment with [facility] in 2 days as scheduled
Interventions
Interventions:
*Risk Screen - Suicide Last Done: 07/06/24 13:52
*General Assessment Last Done: 07/06/24 13:52
*Neglect/Abuse Screening Last Done: 07/06/24 13:52
*ED COVID-19 Vaccine History Last Done: 07/06/24 13:52
ED-Male Genitourinary Assessment Last Done: 07/06/24 15:25
Discharge Date and Time
Print Language: OCCITAN
[2024-07-06 13:52] VITALS: BMI 44.1
[2024-07-06 14:00] VITALS: BP 133/61
[2024-07-06 16:00] VITALS: BP 128/70
== END 2024-07-06 16:58 | disposition home or self-care (01) ==
LOC: EMR 12:33
PROVIDERS: EMERGENCY PHYSICIAN Emergency Medicine; FAMILY PHYSICIAN Family Medicine
DX: R31.9 Hematuria, unspecified (principal)
CPT/HCPCS: 99283; 51798

== ENCOUNTER 2024-07-07 19:01 | Emergency (ER) | payer OTHER, BC, SELFPAY ==
[2024-07-07 19:05] VITALS: BP 150/106
--- NOTE | 2024-07-07 20:59 | ED.GENMED ---
History of Present Illness
General
Chief Complaint: Catheter/Tube Problem
Source: patient
Exam Limitations: none
Time Seen by Provider: 07/07/24 20:29
Nursing documentation reviewed up to this point in time: agreed with
History of Present Illness
History of Present Illness:
39-year-old male presents emergency department due to suprapubic catheter that has clots and is clogged. He has had this happen multiple times. He is due to see a urologist tomorrow at [place].
Past History
Past History
ED Past Medical History: Other (History of meningitis) and Other (Previous urinary tract infection, urethral stricture, urinary retention)
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
Social History
Tobacco: Non-smoker
Alcohol: Occasional
Drug: None
Personal: Single
Living: alone
Employment: Employed
Family History
Family History: Other (Noncontributory)
Review of Systems
Review of Systems
Allergies reviewed?: Yes
All Other Systems: Not applicable
Constitutional: Reports no symptoms
EENT: Reports no symptoms
Respiratory: Reports no symptoms
Cardiac: Reports no symptoms
ABD/GI: Reports no symptoms
: Reports difficulty voiding
Musculoskeletal: Reports no symptoms
Skin: Reports no symptoms
Neurological: Reports no symptoms
Endocrine: Reports no symptoms
Hematologic/Lymphatic: Reports no symptoms
Psychiatric: Reports no symptoms
Phy Exam
Physical Exam
Physical Exam:
Physical Exam
General: no apparent distress, not acutely ill
HEENT: Pupils equal round reactive to light, EOMI
Lungs: no acute respiratory distress.
Abdomen: Suprapubic catheter, draining yellow urine. Not tender. no CVAT
Neuro: alert and oriented. no focal neurological deficits cranial nerves II through XII intact
Skin: no rash
Psychiatric: well kept. interactive and cooperative
Extremities: no edema. no calf tenderness. negative homans. good distal pulses
Course
Orders/Labs/Results
Orders:
Orders
07/07/24 20:[address] Non Medication Order As Directed
Physician Order: irrigate camargo catheter
Vital Signs
Initial and Last Documented VS:
Initial Vital Signs
Temp Pulse Resp BP Pulse Ox
98.5 F 108 22 150/106 97
07/07/24 19:05 07/07/24 19:05 07/07/24 19:05 07/07/24 19:05 07/07/24 19:05
Last Documented Vital Signs
Temp Pulse Resp BP Pulse Ox
98.5 F 108 22 150/106 97
07/07/24 19:05 07/07/24 19:05 07/07/24 19:05 07/07/24 19:05 07/07/24 19:05
MDM/Problems Addressed
Differential Diagnosis Includes:
Clogged Camargo catheter
MDM/Problems Addressed:
39-year-old male with clogged suprapubic catheter, easily irrigated. Draining. Stable for discharge.
Chronic conditions affecting care: Other (Suprapubic catheter)
Acute Exacerbation and/or Progression of Chronic Illness: Other (Suprapubic catheter)
*Pulse Oximetry
Patient hypoxic: no
*Critical Care Note
Total Time (30-74mins, 75-104mins- exclusive of procedures): Not Applicable
Patient Management
Social determinants of health affecting care: Living situation and Strong social support
Escalation/DeEscalation of care consider admission/obs:
Admit not indicated
ED Attending Note
-
Portions of this chart may have been created with voice recognition software.� Occasional wrong word or��sound alike� substitutions may have occurred due to the inherent limitations of voice recognition software.
Discharge Plan
Departure
Patient Disposition: Home (Routine Discharge)
Date of Disposition: 07/07/24
Time of Disposition: 21:02
Patient with high blood pressure during this ER visit?: Yes
Condition: Good
Discharge Problem:
Suprapubic catheter dysfunction
Instructions: How to Care for Your Camargo Catheter, Male, BLOOD PRESSURE
Prescriptions:
No Action
amoxicillin-pot clavulanate 500-125 mg tablet
1 tab PO BID
acetaminophen-codeine 300-30 mg tablet
1 tab PO Q8H PRN (Reason: pain) 7 Days Qty: 20 0RF
Referrals:
Kenny Lim MD [Family Provider] -
Activity Restrictions/Additional Instructions:
Follow-up with urology tomorrow as scheduled. Return for any concerns.
Interventions
Interventions:
*Risk Screen - Suicide Last Done: 07/07/24 19:05
*General Assessment Last Done: 07/07/24 21:01
*Neglect/Abuse Screening Last Done: 07/07/24 19:05
*ED COVID-19 Vaccine History Last Done: 07/07/24 21:01
OS-Chubug-Mvfzdrupnd Assessment Last Done: 07/07/24 21:00
ED-Male Genitourinary Assessment Last Done: 07/07/24 21:00
Discharge Date and Time
Print Language: KOSOVAN
== END 2024-07-07 21:33 | disposition home or self-care (01) ==
LOC: EMR 19:01
PROVIDERS: EMERGENCY PHYSICIAN Emergency Medicine; FAMILY PHYSICIAN Family Medicine
DX: T83.010A Breakdown (mechanical) of cystostomy catheter, initial encounter (principal); Y84.8 Other medical procedures as the cause of abnormal reaction of the patient, or of later complication, without mention of misadventure at the time of the procedure
CPT/HCPCS: 99283

== ENCOUNTER 2024-07-10 19:58 | Emergency (ER) | payer OTHER, BC, SELFPAY ==
[2024-07-10 20:00] VITALS: BP 156/101
[2024-07-10 21:21] VITALS: BP 136/76
[2024-07-10 21:25] VITALS: BMI 43.6
--- NOTE | 2024-07-10 22:45 | ED.GENMED ---
History of Present Illness
General
Chief Complaint: Male Genito-Urinary Symptoms
Time Seen by Provider: 07/10/24 21:32
History of Present Illness
History of Present Illness:
39-year-old male presents to the emergency department due to a clogged suprapubic catheter. This happened a few days ago and was just lodged in the ER. He has no access to saline or sterile water flushes at home. Denies other complaint
Past History
Past History
ED Past Medical History: Other (History of meningitis) and Other (Previous urinary tract infection, urethral stricture, urinary retention)
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
Social History
Tobacco: Non-smoker
Alcohol: Occasional
Drug: None
Personal: Single
Living: alone
Employment: Employed
Family History
Family History: Other (Noncontributory)
Review of Systems
Review of Systems
Allergies reviewed?: Yes
All Other Systems: ROS reviewed and negative except as documented in HPI and ROS
Phy Exam
Physical Exam
Physical Exam:
GEN: Well appearing, NAD, WDWN
HEENT: Oral mucosa moist, no scleral icterus
Cardiac: Regular rate
Lung: No respiratory distress, no tachypnea
Abdomen: Suprapubic site is clean and dry with no erythema or discharge
MSK: No gross deformity or injuries
Skin: Good color, no pallor or jaundice, no rashes
Neuro: AO x3, moves all extremities freely
Psych: Calm, cooperative
Course
Vital Signs
Initial and Last Documented VS:
Initial Vital Signs
Temp Pulse Resp BP Pulse Ox
99.5 F 101 18 156/101 100
07/10/24 20:00 07/10/24 20:00 07/10/24 20:00 07/10/24 20:00 07/10/24 20:00
Last Documented Vital Signs
Temp Pulse Resp BP Pulse Ox
99.5 F 84 18 140/85 99
07/10/24 20:00 07/10/24 23:16 07/10/24 20:00 07/10/24 23:16 07/10/24 23:16
MDM/Problems Addressed
MDM/Problems Addressed:
Catheter irrigated without difficulty and clogged dislodged. Provided patient with saline flushes
*Critical Care Note
Total Time (30-74mins, 75-104mins- exclusive of procedures): Not Applicable
ED Attending Note
-
Portions of this chart may have been created with voice recognition software.� Occasional wrong word or��sound alike� substitutions may have occurred due to the inherent limitations of voice recognition software.
Discharge Plan
Departure
Patient Disposition: Home (Routine Discharge)
Date of Disposition: 07/10/24
Time of Disposition: 22:45
Patient with high blood pressure during this ER visit?: No
Discharge Problem:
Malfunction of Jordan catheter
Instructions: How to Care for Your Jordan Catheter, Male
Prescriptions:
No Action
amoxicillin-pot clavulanate 500-125 mg tablet
1 tab PO BID
acetaminophen-codeine 300-30 mg tablet
1 tab PO Q8H PRN (Reason: pain) 7 Days Qty: 20 0RF
Referrals:
Kenny Lim MD [Family Provider] -
Interventions
Interventions:
*Risk Screen - Suicide Last Done: 07/10/24 20:00
*General Assessment Last Done: 07/10/24 20:00
*Neglect/Abuse Screening Last Done: 07/10/24 20:00
ED- Fall Risk Assessment Last Done: 07/10/24 21:21
*ED COVID-19 Vaccine History Last Done: 07/10/24 20:00
*Nursing Disposition Last Done: 07/10/24 23:27
ED-Male Genitourinary Assessment Last Done: 07/10/24 21:21
Discharge Date and Time
Discharge Date/Time: 07/10/24 23:33
Print Language: WOLOF
[2024-07-10 23:16] VITALS: BP 140/85
== END 2024-07-10 23:33 | disposition home or self-care (01) ==
LOC: EMR 19:58
PROVIDERS: EMERGENCY PHYSICIAN Emergency Medicine; FAMILY PHYSICIAN Family Medicine
DX: T83.010A Breakdown (mechanical) of cystostomy catheter, initial encounter (principal); X58.XXXA Exposure to other specified factors, initial encounter; Z46.6 Encounter for fitting and adjustment of urinary device; Z87.440 Personal history of urinary (tract) infections
CPT/HCPCS: 99282

== ENCOUNTER 2024-07-13 13:15 | Emergency (ER) | payer OTHER, BC, SELFPAY ==
[2024-07-13 13:25] VITALS: BP 133/97
--- NOTE | 2024-07-13 14:22 | ED.GENMED ---
History of Present Illness
General
Chief Complaint: Catheter/Tube Problem
Time Seen by Provider: 07/13/24 14:22
History of Present Illness
History of Present Illness:
TIME OF INITIAL ENCOUNTER: 2:30 PM
HPI: The patient comes in because his suprapubic catheter has been clogged since yesterday has been unable to unclog despite attempted irrigation. This has happened in the past. He states that he had a suprapubic catheter placed weeks ago by
[facility] related to issues from a urethral stricture and false passages. He states he has been able to void through the penis earlier today.
EXAM:
GENERAL: Well appearing in no distress, elevated BMI
HEENT: Moist oral mucosa
NEUROLOGIC: Excellent strength all extremities, no obvious coordination deficits
PSYCHIATRIC: Appropriate mental status, normal insight and judgement
EXTREMITIES: Nontender, no edema, moves all extremities equally
: Soft abdomen, suprapubic catheter sutured in place, scant drainage into the Jordan bag,
SKIN: No rash, no lesions
NUMBER AND COMPLEXITY OF PROBLEMS ADDRESSED AT THE ENCOUNTER
� Chronic conditions affecting care: Has suprapubic catheter due to urethral stricture
� Acute Exacerbation and/or Progression of Chronic Illness: This is an acute but recurrent problem
� Differential Diagnosis includes: Jordan catheter malfunction
AMOUNT AND/OR COMPLEXITY OF DATA TO BE REVIEWED AND ANALYZED
� I performed an independent evaluation of and my interpretation is:
EKG:
CT:
X-rays:
Laboratory Studies:
Other:
� Review of other/old records: I reviewed records from when he was here 3 days ago and at that time the catheter was irrigated
� Clinical information was obtained by an independent historian: None needed
� Prescriptions/Medications Considered but not given:
� Further testing considered but not performed:
RISK OF COMPLICATIONS AND/OR MORBIDITY OR MORTALITY OF PATIENT MANAGEMENT
� Social determinants of health affecting care: Lives at home
� Discussion with other providers: Discussed case with Dr. Daily as the nurse was able to irrigate the catheter. Dr. Daily indicates that since the suprapubic catheter is greater than 8 days old, he recommends that we
attempt to replace.
� Escalation of care including admission/observation vs risk of discharge considered: I have asked the nurse to irrigate the suprapubic catheter
ANY OTHER UPDATES:
3 PM: I successfully
Past History
Past History
ED Past Medical History: Other (History of meningitis) and Other (Previous urinary tract infection, urethral stricture, urinary retention)
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
Social History
Tobacco: Non-smoker
Alcohol: Occasional
Drug: None
Personal: Single
Living: alone
Employment: Employed
Family History
Family History: Other (Noncontributory)
Phy Exam
Physical Exam
Physical Exam:
See HPI
Course
Vital Signs
Initial and Last Documented VS:
Initial Vital Signs
Temp Pulse Resp BP Pulse Ox
98.1 F 81 18 133/97 100
07/13/24 13:25 07/13/24 13:25 07/13/24 13:25 07/13/24 13:25 07/13/24 13:25
Last Documented Vital Signs
Temp Pulse Resp BP Pulse Ox
98.1 F 81 18 133/97 100
07/13/24 13:25 07/13/24 13:25 07/13/24 13:25 07/13/24 13:25 07/13/24 13:25
Procedures
Urinary Catheter
Procedure completed by: Me, Dr. Castro
Type of urinary catheter: indwelling catheter
Catheter size (botswanan): 16
Urine description: blood tinged
Urine output (ml): 100
Additional information:
I replaced suprapubic catheter in 1 attempt
*Critical Care Note
Total Time (30-74mins, 75-104mins- exclusive of procedures): Not Applicable
ED Attending Note
-
Portions of this chart may have been created with voice recognition software.� Occasional wrong word or��sound alike� substitutions may have occurred due to the inherent limitations of voice recognition software.
Discharge Plan
Departure
Patient Disposition: Home (Routine Discharge)
Date of Disposition: 07/13/24
Time of Disposition: 15:19
Patient with high blood pressure during this ER visit?: Yes
Discharge Problem:
Blocked suprapubic catheter
Instructions: How to Care for Your Suprapubic Urinary Catheter
Prescriptions:
No Action
amoxicillin-pot clavulanate 500-125 mg tablet
1 tab PO BID
acetaminophen-codeine 300-30 mg tablet
1 tab PO Q8H PRN (Reason: pain) 7 Days Qty: 20 0RF
Referrals:
Kenny Lim MD [Family Provider] -
Henrique Kennedy MD [Active] - Follow up in 2-3 days
Activity Restrictions/Additional Instructions:
Follow-up with your urologist. I placed a new 16 Polish catheter. I spoke to one of the urologist today, Dr. Daily, Dr. Kennedy partner.
Interventions
Interventions:
*Risk Screen - Suicide Last Done: 07/13/24 13:25
*General Assessment Last Done: 07/13/24 13:25
*Neglect/Abuse Screening Last Done: 07/13/24 13:25
ED- Fall Risk Assessment Last Done: 07/13/24 14:38
*ED COVID-19 Vaccine History Last Done: 07/13/24 14:38
*Nursing Disposition Last Done: 07/13/24 16:10
Discharge Date and Time
Discharge Date/Time: 07/13/24 16:11
Print Language: FRENCH
[2024-07-13 14:38] VITALS: BMI 43.9
--- NOTE | 2024-07-13 14:47 | EDRN ---
Dr. Castro said to irrigate SP but unable to irrigate at all either to infuse sterile saline or to withdraw back. SP is totally clogged.
== END 2024-07-13 16:11 | disposition home or self-care (01) ==
LOC: EMR 13:15
PROVIDERS: EMERGENCY PHYSICIAN Emergency Medicine; FAMILY PHYSICIAN Family Medicine
DX: T83.090A Other mechanical complication of cystostomy catheter, initial encounter (principal); Y84.6 Urinary catheterization as the cause of abnormal reaction of the patient, or of later complication, without mention of misadventure at the time of the procedure; Y73.1 Therapeutic (nonsurgical) and rehabilitative gastroenterology and urology devices associated with adverse incidents
CPT/HCPCS: 99283; 51705

== ENCOUNTER 2024-08-02 14:24 | Emergency (ER) | payer OTHER, BC, SELFPAY ==
[2024-08-02 14:33] VITALS: BP 140/94
--- NOTE | 2024-08-02 15:28 | ED.GENMED ---
History of Present Illness
General
Chief Complaint: Catheter/Tube Problem
Time Seen by Provider: 08/02/24 15:27
History of Present Illness
History of Present Illness:
TIME OF INITIAL ENCOUNTER: 3:30 PM
HPI: The patient presents due to concerns for dysfunction of the suprapubic catheter. I saw this patient last month and at that time I replaced the suprapubic catheter. More recently, the patient noted more of a foul odor which concerned him for
infection. He also reports decreased output from the suprapubic catheter with increased drainage from the penis. He was also concern for some redness at the supra catheter site.
EXAM:
GENERAL: Well appearing in no distress, elevated BMI
HEENT: Moist oral mucosa
NEUROLOGIC: Excellent strength all extremities, no obvious coordination deficits
ABDOMEN: There is a suprapubic catheter in place with scant amount of erythema but no clear evidence for cellulitis
PSYCHIATRIC: Appropriate mental status, normal insight and judgement
EXTREMITIES: Nontender, no edema, moves all extremities equally
SKIN: No rash, no lesions
NUMBER AND COMPLEXITY OF PROBLEMS ADDRESSED AT THE ENCOUNTER
� Chronic conditions affecting care: Has history of urethral stricture now currently has suprapubic catheter, had meningitis in the past
� Acute Exacerbation and/or Progression of Chronic Illness: This is an acute but recurring problem
� Differential Diagnosis includes: Suprapubic catheter malfunction, cellulitis, UTI
AMOUNT AND/OR COMPLEXITY OF DATA TO BE REVIEWED AND ANALYZED
� I performed an independent evaluation of and my interpretation is:
EKG:
CT:
X-rays:
Laboratory Studies: Urinalysis shows greater than 100 WBCs per high-power field
Other:
� Review of other/old records: I reviewed records, the patient has had several ED visits related to concerns of the Jordan/suprapubic catheter
� Clinical information was obtained by an independent historian: None needed
� Prescriptions/Medications Considered but not given:
� Further testing considered but not performed:
RISK OF COMPLICATIONS AND/OR MORBIDITY OR MORTALITY OF PATIENT MANAGEMENT
� Social determinants of health affecting care: Lives at home
� Discussion with other providers:
� Escalation of care including admission/observation vs risk of discharge considered: Urinalysis is abnormal however the patient does have a ongoing suprapubic catheter�he has no fever but he does report some concerns for
foul-smelling odor and concerns for UTI�will place on antibiotics.
ANY OTHER UPDATES:
5 PM: I reassessed patient. Starting antibiotics. Resting comfortably.
Past History
Past History
ED Past Medical History: Other (History of meningitis) and Other (Previous urinary tract infection, urethral stricture, urinary retention)
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
Social History
Tobacco: Non-smoker
Alcohol: Occasional
Drug: None
Personal: Single
Living: alone
Employment: Employed
Family History
Family History: Other (Noncontributory)
Phy Exam
Physical Exam
Physical Exam:
See HPI
Course
Orders/Labs/Results
Orders:
Orders
08/02/24 16:04
Urinalysis Reflex To Culture Urgent
Date Specimen was Collected: 08/02/24
Time Specimen was Collected: 16:02
Urine Microscopic Reflex Cult Urgent
Urine Culture Urgent
GABBY Source: U
Specimen Description:
Date Specimen was Collected: 08/02/24
Time Specimen was Collected: 16:02
08/02/24 16:52
Ciprofloxacin HCl [Cipro] 500 mg PO NOW STA
Abnormal Lab Results
08/02/24
16:04
Ur Occult Blood Reflex 4+ A
(Negative)
Urine Nitrite (Reflex) Positive A
(Negative)
Leukocyte Esterase Rfl 2+ A
(Negative)
Urine RBC 50-60 A /HPF
(0-2)
Urine WBC (Reflex) >100 A /HPF
(0-5)
Urine Bacteria (Reflex) Many A
(Negative)
Urine Albumin (Reflex) 1+ A
(Neg - Trace)
Vital Signs
Initial and Last Documented VS:
Initial Vital Signs
Temp Pulse Resp BP Pulse Ox
36.6 C 65 16 140/94 98
08/02/24 14:33 08/02/24 14:33 08/02/24 14:33 08/02/24 14:33 08/02/24 14:33
Last Documented Vital Signs
Temp Pulse Resp BP Pulse Ox
36.6 C 65 16 140/94 98
08/02/24 14:33 08/02/24 14:33 08/02/24 14:33 08/02/24 14:33 08/02/24 14:33
Procedures
Urinary Catheter
Procedure completed by: , Dr. Castro
Type of urinary catheter: indwelling catheter
Catheter size (zimbabwean): 16
Urine description: pink and blood tinged
Additional information:
I placed a new suprapubic catheter in 1 attempt without difficulty
*Critical Care Note
Total Time (30-74mins, 75-104mins- exclusive of procedures): Not Applicable
ED Attending Note
-
Portions of this chart may have been created with voice recognition software.� Occasional wrong word or��sound alike� substitutions may have occurred due to the inherent limitations of voice recognition software.
Discharge Plan
Departure
Patient Disposition: Home (Routine Discharge)
Date of Disposition: 08/02/24
Time of Disposition: 16:53
Patient with high blood pressure during this ER visit?: Yes
Discharge Problem:
Mechanical complication of suprapubic catheter
Instructions: How to Care for Your Jordan Catheter, Male
Prescriptions:
New
ciprofloxacin HCl [Cipro] 500 mg tablet
500 mg PO BID Qty: 14 0RF
No Action
amoxicillin-pot clavulanate 500-125 mg tablet
1 tab PO BID
acetaminophen-codeine 300-30 mg tablet
1 tab PO Q8H PRN (Reason: pain) 7 Days Qty: 20 0RF
Referrals:
Kenny Lim MD [Family Provider] -
Henrique Kennedy MD [Active] - Follow up in 1 week
Activity Restrictions/Additional Instructions:
Your urinalysis adjust infection�I have placed you on antibiotics and I sent a prescription to your pharmacy. Follow-up with your urologist.
Interventions
Interventions:
*Risk Screen - Suicide Last Done: 08/02/24 14:36
*Neglect/Abuse Screening Last Done: 08/02/24 14:36
Discharge Date and Time
Print Language: MACEDONIAN
[2024-08-02 15:31] VITALS: BP 146/93
[2024-08-02 16:00] VITALS: BP 140/88
[2024-08-02 16:11] LABS: Urine Albumin 1+ (Neg - Trace); Urine Bilirubin Negative (Negative); Urine Character Very Cloudy (Clear); Urine Color Yellow; Urine Glucose Negative (Negative); Urine Ketone Negative (Negative); Urine Leukocyte 2+ (Negative); Urine Nitrite Positive (Negative); Urine Occult Blood 4+ (Negative); Urine Urobilinogen Negative (Neg - 1+); Urine pH 6.5 (5.0-9.0)
[2024-08-02 16:27] LABS: Urine Squamous Cell 0-2 /LPF (Few)
[2024-08-02 16:28] LABS: Urine Bacteria Many (Negative); Urine Red Blood Cell 50-60 /HPF (0-2); Urine White Cell >100 /HPF (0-5)
[2024-08-02] MEDS: CIPRO 500 MG PO (17:11)
== END 2024-08-02 17:25 | disposition home or self-care (01) ==
LOC: EMR 14:24
PROVIDERS: EMERGENCY PHYSICIAN Emergency Medicine; FAMILY PHYSICIAN Family Medicine
DX: T83.090A Other mechanical complication of cystostomy catheter, initial encounter (principal); X58.XXXA Exposure to other specified factors, initial encounter; Z87.440 Personal history of urinary (tract) infections
CPT/HCPCS: 51705; 99284; 81003; 81015; 87086; 87147

== ENCOUNTER 2024-08-05 00:29 | Emergency (ER) | payer OTHER, BC, SELFPAY ==
[2024-08-05 00:30] VITALS: BP 145/104
--- NOTE | 2024-08-05 01:00 | ED.GENMED ---
History of Present Illness
General
Chief Complaint: Catheter/Tube Problem
Source: patient
Exam Limitations: none
Time Seen by Provider: 08/05/24 00:50
History of Present Illness
History of Present Illness:
This is a 39 year old male that comes in with c/o clogged suprapubic catheter. States that he was here 2 days ago as his Suprapubic catheter was clogged. States that it was changed at that time and he was told that he had a UTi. States that he was
place on Cipro. States that his suprapubic catheter seems to be clogged again as he is not draining any urine. States that he is to see his Urologist at [facility] tomorrow. States that the just feels like his bladder is full. Denies any fever,
chills, chest pain, SOB, nausea, vomiting, diarrhea, headache, dizziness.
Past History
Past History
ED Past Medical History: Other (History of meningitis, urinary tract infection, urethral stricture, urinary retention)
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
Social History
Tobacco: Non-smoker
Alcohol: Occasional
Drug: None
Personal: Single
Living: alone
Employment: Employed
Family History
Family History: Other (Noncontributory)
Review of Systems
Review of Systems
All Other Systems: ROS reviewed and negative except as documented in HPI and ROS
Constitutional: Reports no symptoms; Denies fever or chills
EENT: Reports no symptoms
Respiratory: Reports no symptoms; Denies cough or trouble breathing
Cardiac: Reports no symptoms; Denies chest pain
ABD/GI: Denies abdominal pain, nausea, vomiting or diarrhea
: Reports other (Suprapubic catheter is not draining. Feels like his bladder is full)
Musculoskeletal: Reports no symptoms
Skin: Reports no symptoms
Neurological: Reports no symptoms; Denies dizzy or headache
Psychiatric: Reports no symptoms
Phy Exam
General Physical Exam
General Presentation: well appearing and no apparent distress
General age: appears stated age
General Skin: warm and dry
General Habitus: normal
General Mental: alert
General Hydration: appears well hydrated
ENT Exam
ENT Exam: TM's normal, pharynx normal and neck supple
Eye Exam
Eye Exam: EOMI
Cardiovascular Exam
Cardiovascular Exam: regular rate/rhythm, no edema and normal peripheral pulses
Pulmonary Exam
Pulmonary Exam: lungs clear, no respiratory distress, no rales, chest non tender, no crackles, no rhonchi, no wheezing and no cough
Gastrointestinal Exam
Gastrointestinal Exam: normal bowel sounds, non tender, soft, no organomegaly, no pulsatile mass and non distended
External Findings: other (Suprapubic catheter, Site clean and dry. )
Musculoskeletal Exam
Musculoskeletal Exam: full ROM and no edema
Skin Exam
Skin Exam: normal color, warm/dry, no rash and no petechia
Psychiatric Exam
Psychiatric Exam: normal mood/affect
Course
Vital Signs
Initial and Last Documented VS:
Initial Vital Signs
Temp Pulse Resp BP Pulse Ox
98.6 F 92 18 145/104 98
08/05/24 00:30 08/05/24 00:30 08/05/24 00:30 08/05/24 00:30 08/05/24 00:30
Last Documented Vital Signs
Temp Pulse Resp BP Pulse Ox
98.6 F 92 18 145/104 98
08/05/24 00:30 08/05/24 00:30 08/05/24 00:30 08/05/24 00:30 08/05/24 00:30
MDM/Problems Addressed
Differential Diagnosis Includes:
blocked suprapubic catheter,
MDM/Problems Addressed:
This is a 39 year old male that comes in with c/o blocked suprapubic catheter. States that he was here 2 days ago with a blocked catheter. State that he had a UTi and the catheter was changed. States that he was put on Cipro. States that he feels it
is blocked again and that he has an appointment with the Urologist, Dr. Kennedy tomorrow.
Will attempted to flush catheter and if needed will change catheter again.
catheter was irrigated with out difficulty and is draining. Will bladder scan to make sure bladder is empty. Patient states that he feels like he is going. Will allow time for this bladder to drain.
Back into see patient. Patient has continued to drain. 375ml noted in drainage bag. Patient states that he is feeling better and that he is till draining. Will discharge home.
Chronic conditions affecting care:
Suprapubic catheter
Acute Exacerbation and/or Progression of Chronic Illness:
Suprapubic catheter
*Pulse Oximetry
Patient hypoxic: no
*EKG
Interpreted by ED Provider?: NA
Rate: EKG- N/A
*Dental Sales Representative Interpretation
Rate: Dental Sales Representative- N/A
*Critical Care Note
Total Time (30-74mins, 75-104mins- exclusive of procedures): Not Applicable
ED Attending Note
-
Portions of this chart may have been created with voice recognition software.� Occasional wrong word or��sound alike� substitutions may have occurred due to the inherent limitations of voice recognition software.
Discharge Plan
Departure
Patient Disposition: Home (Routine Discharge)
Date of Disposition: 08/05/24
Time of Disposition: 01:39
Patient with high blood pressure during this ER visit?: Yes
Condition: Good
Covid-19: Not Applicable
Discharge Problem:
Blocked suprapubic catheter
Instructions: How to Care for Your Suprapubic Urinary Catheter, BLOOD PRESSURE
Prescriptions:
No Action
amoxicillin-pot clavulanate 500-125 mg tablet
1 tab PO BID
acetaminophen-codeine 300-30 mg tablet
1 tab PO Q8H PRN (Reason: pain) 7 Days Qty: 20 0RF
ciprofloxacin HCl [Cipro] 500 mg tablet
500 mg PO BID Qty: 14 0RF
Referrals:
Chace Ham MD [Family Provider] -
Henrique Kennedy MD [Active] - Tomorrow
Activity Restrictions/Additional Instructions:
As discussed, you suprapubic catheter was irrigated and is now draining. Please increase your water intake to 8-8oz glasses daily. Follow up with Dr. Kennedy tomorrow as scheduled. IF YOU HAVE ANY OTHER CONCERNS PLEASE RETURN TO THE EMERGENCY ROOM.
Interventions
Interventions:
*Risk Screen - Suicide Last Done: 08/05/24 00:30
*General Assessment Last Done: 08/05/24 00:30
*Neglect/Abuse Screening Last Done: 08/05/24 00:30
*ED COVID-19 Vaccine History Last Done: 08/05/24 00:30
QX-Rpcgpj-Eqczfhpnnv Assessment Last Done: 08/05/24 01:21
ED-Male Genitourinary Assessment Last Done: 08/05/24 01:21
Discharge Date and Time
Print Language: GABONESE
== END 2024-08-05 02:00 | disposition home or self-care (01) ==
LOC: EMR 00:29
PROVIDERS: EMERGENCY PHYSICIAN Emergency Medicine; FAMILY PHYSICIAN Family Medicine
DX: T83.090A Other mechanical complication of cystostomy catheter, initial encounter (principal); Y84.6 Urinary catheterization as the cause of abnormal reaction of the patient, or of later complication, without mention of misadventure at the time of the procedure; Y73.1 Therapeutic (nonsurgical) and rehabilitative gastroenterology and urology devices associated with adverse incidents
CPT/HCPCS: 99283; 51798

== ENCOUNTER 2024-08-08 18:31 | Emergency (ER) | payer OTHER, BC, SELFPAY ==
[2024-08-08 18:31] VITALS: BMI 43.9
[2024-08-08 18:33] VITALS: BP 155/99
--- NOTE | 2024-08-08 18:35 | ED.GENMED ---
ED Provider Triage
<Katiana Escalera PA-C - Last Filed: 08/08/24 18:37>
-
Patient seen by provider in Triage?: Seen in Triage
Attestation: A medical screening examination has been initiated by a qualified medical provider. Based on the assessment performed at this time, it has been determined that an emergent medical condition may exist and the patient has been informed
that further medical evaluation and possible additional diagnostic testing may be needed.
HPI: 39yoM here with a suprapubic catheter dysfunction. Multiple recent ED visits for the same. Catheter last exchanged 6 days ago. Flushing catheter BID. Catheter stopped draining <2 hours ago. Currently on Cipro.
GENERAL: Alert , in no apparent distress
EYE: No visual abnormalities.
NECK: Trachea midline
ENT: No visible abnormalities.
LUNGS: No acute respiratory distress
NEUROLOGICAL: Alert and oriented
SKIN: Skin intact. No visible changes.
MUSCULOSKELETAL: Moving extremities normally
PSYCH: Normal and appropriate interaction.
This is a medical evaluation conducted in person to initiate diagnostic evaluation and provide initial therapeutics. Please see further documentation by the treating clinician.
History of Present Illness
<Katiana Escalera PA-C - Last Filed: 08/08/24 18:37>
General
Chief Complaint: Catheter/Tube Problem
Time Seen by Provider: 08/08/24 19:39
<Keyona Arauz DO - Last Filed: 08/08/24 23:13>
History of Present Illness
History of Present Illness:
39-year-old male with history of chronic suprapubic catheter from urinary retention presenting with concern of catheter blockage. Reports that he tried flushing his catheter prior to arrival and it was not flushing. Patient has been seen and
evaluated for this complaint in the past, last changed last week. He is already on antibiotics for chronic UTI. Denies abdominal pain, chest pain, difficulty breathing, or additional acute medical complaints.
Past History
<Katiana Escalera PA-C - Last Filed: 08/08/24 18:37>
Past History
ED Past Medical History: Other (History of meningitis, urinary tract infection, urethral stricture, urinary retention)
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
Social History
Tobacco: Non-smoker
Alcohol: Occasional
Drug: None
Personal: Single
Living: alone
Employment: Employed
Family History
Family History: Other (Noncontributory)
Phy Exam
<Keyona Arauz DO - Last Filed: 08/08/24 23:13>
Physical Exam
Physical Exam:
General: Well-appearing, no clinical signs of dehydration, nontoxic and in no acute distress
HEENT: protecting airway
Neck: appears supple
CV: Normal heart rate
Resp: No accessory muscle use, no increased work of breathing
Abd: No distention, nontender. Normal appearance of suprapubic catheter site with scant urine in urine bag
Extremities: No deformities, no swelling, no erythema, pulses and sensation intact
Neuro: alert, no focal neurologic deficit
: deferred
Rectal: deferred
Psych: Normal affect
Skin: Intact
Course
<Katiana Escalera PA-C - Last Filed: 08/08/24 18:37>
Vital Signs
Initial and Last Documented VS:
Initial Vital Signs
Temp Pulse Resp BP Pulse Ox
98.1 F 87 20 155/99 99
08/08/24 18:33 08/08/24 18:33 08/08/24 18:33 08/08/24 18:33 08/08/24 18:33
Last Documented Vital Signs
Temp Pulse Resp BP Pulse Ox
98.1 F 78 16 143/74 99
08/08/24 18:33 08/08/24 21:07 08/08/24 21:07 08/08/24 21:07 08/08/24 21:07
<Keynoa Arauz DO - Last Filed: 08/08/24 23:13>
Vital Signs
Initial and Last Documented VS:
Initial Vital Signs
Temp Pulse Resp BP Pulse Ox
98.1 F 87 20 155/99 99
08/08/24 18:33 08/08/24 18:33 08/08/24 18:33 08/08/24 18:33 08/08/24 18:33
Last Documented Vital Signs
Temp Pulse Resp BP Pulse Ox
98.1 F 78 16 143/74 99
08/08/24 18:33 08/08/24 21:07 08/08/24 21:07 08/08/24 21:07 08/08/24 21:07
<Keyona Arauz DO - Last Filed: 08/08/24 23:13>
MDM/Problems Addressed
MDM/Problems Addressed:
39-year-old male presenting to the emergency department with concern of suprapubic blockage. Vitals are significant for mild hypertension.
Patient well-appearing, nontoxic. Unremarkable exam. Catheter was flushed by nurse without issue. At this time do not feel patient requires replacement. Feel stable for discharge with continued outpatient urology follow-up. Return precautions
discussed and patient verbalized understanding
<DO Claudia Oconnor Last Filed: 08/08/24 23:13>
*Critical Care Note
Total Time (30-74mins, 75-104mins- exclusive of procedures): Not Applicable
ED Attending Note
<Katiana Escalera PA-C - Last Filed: 08/08/24 18:37>
-
Portions of this chart may have been created with voice recognition software.� Occasional wrong word or��sound alike� substitutions may have occurred due to the inherent limitations of voice recognition software.
Discharge Plan
Departure
Patient Disposition: Home (Routine Discharge)
Date of Disposition: 08/08/24
Time of Disposition: 21:07
Patient with high blood pressure during this ER visit?: Yes
Condition: Good
Discharge Problem:
Encounter for suprapubic catheter care
Instructions: How to Care for Your Jordan Catheter, Male, BLOOD PRESSURE
Prescriptions:
No Action
amoxicillin-pot clavulanate 500-125 mg tablet
1 tab PO BID
acetaminophen-codeine 300-30 mg tablet
1 tab PO Q8H PRN (Reason: pain) 7 Days Qty: 20 0RF
ciprofloxacin HCl [Cipro] 500 mg tablet
500 mg PO BID Qty: 14 0RF
Referrals:
Kenny Lim MD [Family Provider] -
Activity Restrictions/Additional Instructions:
You were seen in the emergency department for concern of catheter blockage
Your catheter was flushed without incident. Please continue to follow with urology.
Please follow-up closely with your primary care physician.
Return to the emergency department for any worsening of your symptoms, or any development of chest pain, difficulty breathing, abdominal pain with persistent vomiting and inability to tolerate food or liquid by mouth (concern for dehydration),
weakness, headache or confusion, fever greater than 100.4, or any additional symptoms that are concerning to you.
Thank you for choosing [facility].
Interventions
Interventions:
*Risk Screen - Suicide Last Done: 08/08/24 20:16
*General Assessment Last Done: 08/08/24 18:33
*Neglect/Abuse Screening Last Done: 08/08/24 20:16
ED- Fall Risk Assessment Last Done: 08/08/24 20:16
*Nursing Disposition Last Done: 08/08/24 21:16
BB-Gnvokr-Mjmokmtsgp Assessment Last Done: 08/08/24 20:16
ED-Male Genitourinary Assessment Last Done: 08/08/24 20:16
Discharge Date and Time
Discharge Date/Time: 08/08/24 21:16
Print Language: NEPALI
[2024-08-08 21:07] VITALS: BP 143/74
== END 2024-08-08 21:16 | disposition home or self-care (01) ==
LOC: EMR 18:31
PROVIDERS: EMERGENCY PHYSICIAN Student in an Organized Health Care Education/Training Program; FAMILY PHYSICIAN Family Medicine
DX: Z46.6 Encounter for fitting and adjustment of urinary device (principal); R03.0 Elevated blood-pressure reading, without diagnosis of hypertension
CPT/HCPCS: 99282

== ENCOUNTER 2024-09-15 14:56 | Emergency (ER) | payer OTHER, BC, SELFPAY ==
[2024-09-15 15:00] VITALS: BP 147/100
--- NOTE | 2024-09-15 17:03 | ED.GENMED ---
History of Present Illness
General
Chief Complaint: Catheter/Tube Problem
Source: patient
Exam Limitations: none
Time Seen by Provider: 09/15/24 16:37
History of Present Illness
History of Present Illness:
39-year-old male here for check of his Jordan catheter. He recently had a urethroplasty performed for history of urethral stricture. Prior to this he was using a suprapubic catheter. He no longer has a suprapubic catheter but following the
procedure he had a Jordan catheter placed. He notes decreased output of urine. He denies abdominal pain or full bladder sensation. No leaking of urine around the catheter. He has been here multiple times for a blocked catheter. He is due to have
his catheter removed next week at his urologist office. No fevers or vomiting.
Past History
Past History
ED Past Medical History: Other (History of meningitis, urinary tract infection, urethral stricture, urinary retention)
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
Social History
Tobacco: Non-smoker
Alcohol: Occasional
Drug: None
Personal: Single
Living: alone
Employment: Employed
Family History
Family History: Other (Noncontributory)
Phy Exam
Physical Exam
Physical Exam:
General: Well-appearing male no acute respiratory distress
HEENT: Normocephalic atraumatic
Heart: Regular rate and rhythm no murmurs
Lungs: Clear no wheeze
Abdomen is soft nondistended no suprapubic tenderness no guarding or rebound
exam: Jordan catheter in place no drainage of urine around the catheter. There is urine in the bag.
Course
Vital Signs
Initial and Last Documented VS:
Initial Vital Signs
Temp Pulse Resp BP Pulse Ox
97.9 F 105 16 147/100 98
09/15/24 15:00 09/15/24 15:00 09/15/24 15:00 09/15/24 15:00 09/15/24 15:00
Last Documented Vital Signs
Temp Pulse Resp BP Pulse Ox
97.9 F 105 16 147/100 98
09/15/24 15:00 09/15/24 15:00 09/15/24 15:00 09/15/24 15:00 09/15/24 15:00
MDM/Problems Addressed
Differential Diagnosis Includes:
Patient recently emptied his Jordan catheter bag prior to coming in then when he came in there was enough urine in the bag to fill a urinalysis cup. Since then there has been more urine in the bag. There is no leaking. Bladder scan at the bedside
shows no urine in the bladder. I suspect no acute issue with the catheter it seems to be functioning. At this point no indication for exchange of the catheter. He will follow-up with his urologist as planned.
*Critical Care Note
Total Time (30-74mins, 75-104mins- exclusive of procedures): Not Applicable
ED Attending Note
-
Portions of this chart may have been created with voice recognition software.� Occasional wrong word or��sound alike� substitutions may have occurred due to the inherent limitations of voice recognition software.
Discharge Plan
Departure
Patient Disposition: Home (Routine Discharge)
Date of Disposition: 09/15/24
Time of Disposition: 17:06
Patient with high blood pressure during this ER visit?: No
Discharge Problem:
Chronic indwelling Jordan catheter
Instructions: How to Care for Your Jordan Catheter, Male
Prescriptions:
No Action
amoxicillin-pot clavulanate 500-125 mg tablet
1 tab PO BID
acetaminophen-codeine 300-30 mg tablet
1 tab PO Q8H PRN (Reason: pain) 7 Days Qty: 20 0RF
ciprofloxacin HCl [Cipro] 500 mg tablet
500 mg PO BID Qty: 14 0RF
Referrals:
Kenny Lim MD [Family Provider] -
Activity Restrictions/Additional Instructions:
Please return here for worsening symptoms otherwise follow-up with your urologist as planned
Interventions
Interventions:
*Risk Screen - Suicide Last Done: 09/15/24 15:00
*General Assessment Last Done: 09/15/24 15:00
*Neglect/Abuse Screening Last Done: 09/15/24 15:00
*ED COVID-19 Vaccine History Last Done: 09/15/24 15:00
Discharge Date and Time
Print Language: CHINESE
[2024-09-15 17:56] LABS: Urine Albumin 1+ (Neg - Trace); Urine Bilirubin Negative (Negative); Urine Character Slightly Cloudy (Clear); Urine Color Yellow; Urine Glucose Negative (Negative); Urine Ketone Negative (Negative); Urine Leukocyte 2+ (Negative); Urine Nitrite Positive (Negative); Urine Occult Blood 1+ (Negative); Urine Specific Gravity 1.025 (<1.030); Urine Urobilinogen Negative (Neg - 1+)
[2024-09-15 18:14] LABS: Urine Squamous Cell 0-2 /LPF (Few)
[2024-09-15 18:15] LABS: Urine Bacteria Many (Negative); Urine White Cell 30-40 /HPF (0-5)
== END 2024-09-15 18:45 | disposition home or self-care (01) ==
LOC: EMR 14:56
PROVIDERS: Physician Assistant; EMERGENCY PHYSICIAN Emergency Medicine; FAMILY PHYSICIAN Family Medicine
DX: Z46.6 Encounter for fitting and adjustment of urinary device (principal); Z87.448 Personal history of other diseases of urinary system; Z98.890 Other specified postprocedural states; Z87.440 Personal history of urinary (tract) infections
CPT/HCPCS: 99283; 81003; 81015; 87077; 87086; 87147

== ENCOUNTER 2024-09-17 20:48 | Emergency (ER) | payer OTHER, BC, SELFPAY ==
[2024-09-17 20:52] VITALS: BP 156/111
[2024-09-18 00:18] VITALS: BP 131/82; BMI 44.8
[2024-09-18] MEDS: AUGMENTIN 875 MG/125 MG 1 TABLET PO (01:00)
--- NOTE | 2024-09-18 01:05 | ED.GENMED ---
History of Present Illness
General
Chief Complaint: Male Genito-Urinary Symptoms
Source: patient and previous hospital records (Previous ED visits for urinary catheter related complaints most recently September 15)
Exam Limitations: none
Time Seen by Provider: 09/18/24 00:17
Nursing documentation reviewed up to this point in time: agreed with
History of Present Illness
History of Present Illness:
This is a 39-year-old gentleman who has history of urinary retention related to urethral stricture with history of chronic suprapubic Jordan catheter.
More recently, September 04 he underwent urethroplasty procedure by Dr. Dash at [facility]. During that time of procedure, suprapubic catheter was removed and Jordan catheter was placed.
He is scheduled for Jordan catheter removal and cystourethrogram in office next September 23.
He was evaluated in this ED September 15 with complaints of decreased urine output from Jordan catheter and otherwise was feeling well without abdominal pain nor suprapubic pressure, no dysuria, no fever nor back pain.
During that ED visit Jordan catheter appeared to be draining well, bladder scan showed no urine within the bladder. Urinalysis on September 15 suspicious for UTI and patient does have history of chronic/frequent UTIs. A prescription for Augmentin was
prescribed but he has not retrieved this as yet from his pharmacy.
Tonight while getting undressed he inadvertently pulled his Jordan catheter out.
He denies pain, denies hematuria and he has been able to void without difficulty since Jordan catheter was inadvertently dislodged.
He has had no abdominal pain nor flank pain, no fever no chills, no dysuria.
He did attempt to contact his urologist without success.
Past History
Past History
ED Past Medical History: Psychiatric (Anxiety) and Other (History of meningitis, urinary tract infection, urethral stricture, urinary retention)
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
Social History
Tobacco: Non-smoker
Alcohol: Occasional
Drug: None
Personal: Single
Living: alone
Employment: Employed
Family History
Family History: Other (Noncontributory)
Phy Exam
Physical Exam
Physical Exam:
GENERAL: 39-year-old obese gentleman appears his stated age. Bright and alert, pleasant, easily communicative and in no acute distress. Moderate hypertension noted initially, has normalized upon recheck. Afebrile.
EYE: anicteric
NECK: Supple, nontender, no meningismus, no significant adenopathy.
ENT: oral mucosa is moist. No rhinorrhea.
CARDIAC: Regular rate and rhythm. no murmur.
LUNGS: Clear breath sounds bilaterally, no acute respiratory distress, no wheezes/rales/rhonchi
ABDOMEN: Rotund, soft, nondistended, without focal tenderness, no r/g, no cvat. normoactive BS. Suprapubic catheter site well-healed. No drainage.
NEUROLOGICAL: Alert and oriented x3, no focal neuro deficits. Gait is steady.
SKIN: Warm and dry, normal color, skin intact. No rash.
MUSCULOSKELETAL: No C/C/E. peripheral pulses are full and equal b/l. No palpable tenderness.
PSYCH: Normal and appropriate interaction.
Course
Orders/Labs/Results
Orders:
Orders
09/18/24 00:47
Amoxicillin 875 mg/Clav 125 mg [Augmentin 875 mg/125 mg] 1 tablet PO NOW STA
Vital Signs
Initial and Last Documented VS:
Initial Vital Signs
Temp Pulse Resp BP Pulse Ox
98 F 91 16 156/111 99
09/17/24 20:52 09/17/24 20:52 09/17/24 20:52 09/17/24 20:52 09/17/24 20:52
Last Documented Vital Signs
Temp Pulse Resp BP Pulse Ox
98 F 80 18 131/82 98
09/17/24 20:52 09/18/24 00:18 09/18/24 00:18 09/18/24 00:18 09/18/24 00:18
MDM/Problems Addressed
Differential Diagnosis Includes:
Patient is 2 weeks status post urethroplasty procedure, inadvertent dislodgment of Jordan catheter tonight.
Since Jordan catheter dislodgment he has been voiding without difficulty. No hematuria.
Bedside bladder scan after voiding reveals empty bladder.
Urinalysis from September 15 concerning for UTI and preliminary urine culture growing greater than 100,000 colony count of gram-negative rods and greater than 100,000 colony count coagulase-negative staph. Sensitivities are pending.
Urine culture from August 02 positive for methicillin sensitive Staph aureus, pansensitive save for ampicillin.
Recommend initiation of Augmentin that was prescribed on the and will give a dose now.
As patient is voiding well, no evidence of urinary retention, at this point no indication to reinsert Jordan catheter.
Discussed importance of staying well-hydrated on a daily basis.
Initiate Augmentin.
Prompt follow-up with urologist for recheck.
Return precautions discussed.
Chronic conditions affecting care: Other (Chronic bacteriuria, history of urinary retention, urethral stricture status post urethroplasty procedure September 04, 2024)
*Pulse Oximetry
Patient hypoxic: no
*Critical Care Note
Total Time (30-74mins, 75-104mins- exclusive of procedures): Not Applicable
ED Attending Note
-
Portions of this chart may have been created with voice recognition software.� Occasional wrong word or��sound alike� substitutions may have occurred due to the inherent limitations of voice recognition software.
Discharge Plan
Departure
Patient Disposition: Home (Routine Discharge)
Date of Disposition: 09/18/24
Time of Disposition: 01:05
Patient with high blood pressure during this ER visit?: No
Discharge Problem:
Dislodged Jordan catheter
Prescriptions:
Discontinued
amoxicillin-pot clavulanate 500-125 mg tablet
1 tab PO BID
acetaminophen-codeine 300-30 mg tablet
1 tab PO Q8H PRN (Reason: pain) 7 Days Qty: 20 0RF
ciprofloxacin HCl [Cipro] 500 mg tablet
500 mg PO BID Qty: 14 0RF
No Action
amoxicillin-pot clavulanate 875-125 mg tablet
1 tab PO BID Qty: 14 0RF
Referrals:
Chace Ham MD [Family Provider] -
Activity Restrictions/Additional Instructions:
Call your urologist, Dr. Dash today for further evaluation.
Stay well-hydrated on a daily basis.
collection supervisor and initiate Augmentin prescription from pharmacy today.
Urine culture sensitivities from urinalysis September 15 are still pending. You will be notified if Augmentin is found to be insufficient coverage for bacteria in your urine.
Interventions
Interventions:
*Risk Screen - Suicide Last Done: 09/18/24 00:18
*General Assessment Last Done: 09/18/24 01:10
*Neglect/Abuse Screening Last Done: 09/17/24 20:52
ED- Fall Risk Assessment Last Done: 09/18/24 00:18
*ED COVID-19 Vaccine History Last Done: 09/18/24 00:18
*Nursing Disposition Last Done: 09/18/24 01:10
ED-Male Genitourinary Assessment Last Done: 09/18/24 00:15
Discharge Date and Time
Discharge Date/Time: 09/18/24 01:10
Print Language: GREEK
== END 2024-09-18 01:10 | disposition home or self-care (01) ==
LOC: EMR 20:48
PROVIDERS: EMERGENCY PHYSICIAN Emergency Medicine; FAMILY PHYSICIAN Family Medicine
DX: T83.021A Displacement of indwelling urethral catheter, initial encounter (principal); X58.XXXA Exposure to other specified factors, initial encounter; Z87.440 Personal history of urinary (tract) infections; F41.9 Anxiety disorder, unspecified
CPT/HCPCS: 99282